=== PATIENT | male | born 1965 | race Caucasian/White ===

== ENCOUNTER 2016-05-27 01:35 | Day surgery (SDC) | payer MEDICARE ==
[~2016-05-27 01:35] MED LIST: ALBU8.5H2 INHALATION; ATOR20TA PO; BUPR1FIL3 SL; CHOL5000 PO; DULO60CA61 PO; IMI100 PO; METF500T4 PO; OMEP20TA86 PO; OXYC-465 PO; PREG75CA PO; THIO300C PO; TOPI25TA26 PO; TRAZ-115 PO
[2016-05-27] MEDS ORDERED: Sodium Chloride LOK Flush 10 mL Syringe IV PRN (06:00)
[2016-05-27] MEDS ORDERED: 0.9% Sodium Chloride 1,000 ML IV SCH (06:00)
[2016-05-27] MEDS ORDERED: Lactated Ringer's 1,000 ML IV ONE (06:00)
[2016-05-27] MEDS ORDERED: fentaNYL-PF 50 mCg/mL 2 mL Inj IVPUSH PRN (06:00)
== END 2016-05-27 23:59 | disposition home or self-care (01) ==
LOC: END 01:35
PROVIDERS: ATTEND Internal Medicine Gastroenterology